=== PATIENT | male | born 1985 | race Caucasian/White ===

== ENCOUNTER → 2017-07-25 | Outpatient (CLI) | payer OTHER ==
--- NOTE | 2017-07-25 14:59 | DIAGNOSTIC IMAGING REPORT ---
KUB HISTORY: R39.9 Symptoms involving urinary [id number] COMPARISON: CT 04/09/2015 FINDINGS: The bowel gas pattern is non-obstructive. There is no organomegaly. Multiple left-sided nephrolithiasis are seen measuring up to 3 mm. No definite ureteral calculi identified. Calcifications about the left hemipelvis suggest phleboliths. No pneumoperitoneum or pneumatosis. No fracture. Remote fracture deformity of the right superior pubic ramus. IMPRESSION: Left-sided nephrolithiasis without ureteral calculi identified. Electronically signed by: Leon Conroy M.D. 07/25/2017 2:58 PM Dictated Date/Time: 07/25/2017 2:57 PM
== END | disposition home or self-care (01) ==
LOC: C.RAD1850 14:37
PROVIDERS: ATTEND Internal Medicine
DX: N20.0 Calculus of kidney (principal)